=== PATIENT | female | born 1975 | race Caucasian/White ===

== ENCOUNTER 2023-08-03 20:07 | Emergency (ER) | payer OTHER, SELFPAY ==
[2023-08-03 20:09] VITALS: BP 158/97
[2023-08-03 20:31] LABS: % Basophils 0.3 % (0-2); % Eosinophils 0.5 % (0-6); % Immature Granulocytes 0.3 % (0-0.5); % Lymphocytes 20.7 % (20.5-51.1); % Monocytes 5.2 % (1.7-9.3); Absolute Eosinophils 0.1 10^3/uL (0-0.7); Absolute Lymphocytes 2.1 10^3/uL (1.2-3.4); Absolute Monocytes 0.5 10^3/uL (0.1-0.6); Absolute Neutrophils 7.2 10^3/uL (1.4-6.5); Hematocrit 39.2 % (37.0-47.0); Hemoglobin 13.7 g/dL (12.0-16.0); Mean Corp Hgb Conc. 34.9 g/dL (33.0-37.0); Mean Corpuscular Hgb 29.9 pg (27.0-31.0); Mean Corpuscular Volume 85.6 fL (81.0-99.0); Mean Platelet Volume 9.3 fL (7.4-10.4); Nucleated Red Blood Cells % 0 %; Platelet Count 238 10^3/uL (130-400); Red Blood Cell Count 4.58 10^6/uL (4.20-5.40); Red Cell Dist. Width 12.5 % (11.5-14.5); White Blood Cell Count 9.9 10^3/uL (4.8-10.8)
[2023-08-03 20:46] LABS: HCG, Serum Qualitative Screen Negative
[2023-08-03 20:49] LABS: ALT (SGPT) 26 U/L (0-35); AST (SGOT) 34 U/L (14-36); Albumin 4.9 g/dl (3.5-5.0); Alkaline Phosphatase 75 U/L (38-126); Blood Urea Nitrogen 16 mg/dl (7-17); Carbon Dioxide 23 mmol/L (22-30); Chloride 99 mmol/L (98-107); Glucose 102 mg/dl (70-99); Potassium 3.9 mmol/L (3.5-5.1); Sodium 135 mmol/L (135-145); Total Bilirubin 0.8 mg/dl (0.2-1.3); Total Protein 7.5 g/dl (6.3-8.2); eGFR > 60.00
[2023-08-03 21:16] VITALS: BMI 32.2
[2023-08-03 21:17] LABS: Lipase 78 U/L (23-300)
[2023-08-03] MEDS: ZOFRAN 4 MG IV (22:17)
[2023-08-03] MEDS: TORADOL 15 MG IV (22:17)
--- NOTE | 2023-08-03 22:19 | ED.GENMED ---
History of Present Illness
General
Chief Complaint: Abdominal Pain
Source: patient
Exam Limitations: none
Time Seen by Provider: 08/03/23 22:00
Travel History
Have you had any contact with someone who has COVID-19?: No
Do you have any symptoms of coronavirus? Fever > 100 degrees, chills, cough, shortness of breath, sore throat, loss of taste or smell, muscle aches, or headache?: No
History of Present Illness
History of Present Illness:
48-year-old female presents complaining the onset of epigastric abdominal pain that radiates to both sides. There is some nausea. It radiates to the back slightly. She notes a decreased appetite. This started around 1 PM today and got worse
since then. She had a similar episode about 1 month ago that was short lasting. She had 2 bowel movements today. She denies any dark or tarry stools.
Past History
Past History
ED Past Medical History: None
ED Past Surgical History: Other (Sinus surgery)
Social History
Tobacco: Non-smoker
Personal:
Living: with family
Phy Exam
Physical Exam
Physical Exam:
General: Well-appearing female no acute respiratory distress
HEENT: Normocephalic atraumatic
Heart: Regular rate and rhythm no murmurs
Lungs: Clear to auscultation bilaterally no wheezing
Abdomen: Soft tender to the epigastric and right upper quadrants. No guarding rebound normal bowel sounds negative Chavez sign
Extremities: No cyanosis
Skin: Warm no rash
Course
Orders/Labs/Results
Orders:
Orders
08/03/23 20:14
Test Result ONCE
08/03/23 20:26
Complete Blood Count/With Diff Urgent
Comprehensive Metabolic Panel Urgent
HCG, Serum Qualitative Screen Urgent
Lipase Urgent
08/03/23 22:10
Ketorolac [Toradol] 15 mg IV NOW STA
Ondansetron Injectable [Zofran] 4 mg IV NOW STA
US Abdomen Complete/Upper Urgent
Comment:
Reason For Exam: epigastric pain
08/03/23 23:25
Famotidine [Pepcid] 20 mg IV NOW STA
08/04/23 00:00
CT Abd/pelvis W Iv Cont Urgent
Reason For Exam: midabdominal pain
08/04/23 01:04
Mag Hydrox/Al Hydrox/Simeth [Maalox] 30 ml Phenobarb/Hyoscy/Atropine/Scop [] 10 ml PO NOW
Abnormal Lab Results
08/03/23
20:26
Absolute Neuts (auto) 7.2 H 10^3/uL
(1.4-6.5)
Glucose 102 H mg/dl
(70-99)
08/03/23 20:26
08/03/23 20:26
Vital Signs
Initial and Last Documented VS:
Initial Vital Signs
Temp Pulse Resp BP Pulse Ox
98.4 F 80 18 158/97 100
08/03/23 20:09 08/03/23 20:09 08/03/23 20:09 08/03/23 20:09 08/03/23 20:09
Last Documented Vital Signs
Temp Pulse Resp BP Pulse Ox
98.4 F 80 18 158/97 100
08/03/23 20:09 08/03/23 20:09 08/03/23 20:09 08/03/23 20:09 08/03/23 20:09
MDM/Problems Addressed
Differential Diagnosis Includes:
Upper abdominal pain. Consider gastritis or pancreatitis versus biliary colic versus constipation
Will check labs. Given tenderness on exam will order ultrasound.
*Critical Care Note
Total Time (30-74mins, 75-104mins- exclusive of procedures): Not Applicable
Update Note
Update Note:
Ultrasound shows sludge with gallstones but no signs of cholecystitis. Patient still in quite a bit of pain and tender on exam. Will continue with CT scan. Pepcid ordered. CT demonstrates thickening of the distal esophageal wall to suggest
esophagitis. This would be consistent with patient's symptoms. Recommended PPI. GI cocktail given here. Referred to GI. Stable for discharge
ED Attending Note
-
Portions of this chart may have been created with voice recognition software.� Occasional wrong word or��sound alike� substitutions may have occurred due to the inherent limitations of voice recognition software.
Discharge Plan
Departure
Patient Disposition: Home (Routine Discharge)
Date of Disposition: 08/04/23
Time of Disposition: 01:05
Patient with high blood pressure during this ER visit?: No
Discharge Problem:
Esophagitis
Instructions: Abdominal Pain
Prescriptions:
New
pantoprazole [Protonix] 40 mg tablet,delayed release (DR/EC)
40 mg PO DAILY Qty: 14 0RF
No Action
ciprofloxacin HCl 500 MG tablet
500 mg PO BID Qty: 10 0RF
Referrals:
Jonah Villa MD [Active] -
Anila Olmos CRNP [Family Provider] -
Activity Restrictions/Additional Instructions:
Eat a bland diet. Drink plenty of water. Use Protonix as directed. Return here for worsening symptoms otherwise follow-up with GI
Interventions
Interventions:
*Risk Screen - Suicide Last Done: 08/03/23 20:13
*General Assessment Last Done: 08/03/23 20:09
*Neglect/Abuse Screening Last Done: 08/03/23 20:09
BH-Lnfems-Xlodizplrg Assessment Last Done: 08/03/23 21:16
Discharge Date and Time
Print Language: JAMA[place]
[2023-08-03] MEDS: PEPCID 20 MG IV (23:34)
[2023-08-04] MEDS: MAALOX 40 PO (01:30)
== END 2023-08-04 01:54 | disposition home or self-care (01) ==
LOC: EMR 20:07
PROVIDERS: EMERGENCY PHYSICIAN Emergency Medicine; FAMILY PHYSICIAN Nurse Practitioner Adult Health
DX: K20.90 Esophagitis, unspecified without bleeding (principal)
CPT/HCPCS: 99285; 96374; 96375 ×2; 74177; 76700; 80053; 83690; 84703; 85025; Q9967

== ENCOUNTER → 2024-02-02 06:16 | Day surgery (SDC) | payer OTHER, SELFPAY | LOC: GI 06:16 | PROVIDERS: ATTENDING PHYSICIAN Internal Medicine | DX: Z12.11 Encounter for screening for malignant neoplasm of colon (principal); Z86.0101 Personal history of adenomatous and serrated colon polyps; K57.30 Diverticulosis of large intestine without perforation or abscess without bleeding; D12.0 Benign neoplasm of cecum; K63.5 Polyp of colon | CPT/HCPCS: 45385; 45380; 88305 ==

== ENCOUNTER 2024-07-19 15:04 | Emergency (ER) | payer SELFPAY ==
[2024-07-19 15:06] VITALS: BP 146/89
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
[2024-07-19] MEDS: MOTRIN 600 MG PO (16:20)
== END 2024-07-19 18:04 | disposition home or self-care (01) ==
LOC: EMR 15:04
PROVIDERS: EMERGENCY PHYSICIAN Emergency Medicine; FAMILY PHYSICIAN Nurse Practitioner Adult Health
DX: S62.002A Unspecified fracture of navicular [scaphoid] bone of left wrist, initial encounter for closed fracture (principal); R07.89 Other chest pain; V49.40XA Driver injured in collision with unspecified motor vehicles in traffic accident, initial encounter
CPT/HCPCS: 29125; 99284; 71046; 73110; 73140; 93005

== ENCOUNTER 2025-03-16 13:44 | Emergency (ER) | payer OTHER, SELFPAY ==
[2025-03-16 13:50] VITALS: BP 162/101
[2025-03-16 14:32] LABS: Hematocrit 42.2 % (37.0-47.0); Hemoglobin 14.6 g/dL (12.0-16.0); Mean Corp Hgb Conc. 34.6 g/dL (33.0-37.0); Mean Corpuscular Volume 85.4 fL (81.0-99.0); Nucleated Red Blood Cells % 0 %; Platelet Count 251 10^3/uL (130-400); Red Cell Dist. Width 12.9 % (11.5-14.5)
[2025-03-16 14:48] LABS: ALT (SGPT) 27 U/L (0-35); AST (SGOT) 24 U/L (14-36); Albumin 4.8 g/dl (3.5-5.0); Alkaline Phosphatase 66 U/L (38-126); Blood Urea Nitrogen 16 mg/dl (7-17); Calcium 9.3 mg/dl (8.4-10.2); Carbon Dioxide 29 mmol/L (22-30); Chloride 101 mmol/L (98-107); Glucose 95 mg/dl (70-99); Potassium 4.1 mmol/L (3.5-5.1); Sodium 137 mmol/L (135-145); Total Protein 7.8 g/dl (6.3-8.2); eGFR > 60.00
[2025-03-16 14:50] LABS: HCG, Serum Qualitative Screen Negative
--- NOTE | 2025-03-16 16:37 | ED.GENMED ---
History of Present Illness
<Juanito Barney MD, Resident - Last Filed: 03/16/25 19:28>
General
Chief Complaint: Cardiac Symptoms
Source: patient
Time Seen by Provider: 03/16/25 16:11
History of Present Illness
History of Present Illness:
Patient is a 50-year-old female, with past medical history significant for migraines, GERD, who is here for evaluation of palpitations in her chest.
Her symptoms started about 2 days ago, no precipitating event, she is currently on her period and she usually gets her migraines along with it, which usually resolves with ice packs on her neck and ibuprofen. This time, her headaches did not
resolve but it. Her main issue along with these usual headaches was the palpitations, and she feels like her heart is racing and it would jump out of her chest, and she feels the sensation radiating up her neck as well. Along with that she feels
like she is having difficulty breathing due to the chest palpitations.
Denies any chest pain, lightheadedness, dizziness, nausea, vomiting, syncope or near syncopal episodes.
Past History
<Juanito Barney MD, Resident - Last Filed: 03/16/25 19:28>
Past History
ED Past Medical History: None
ED Past Surgical History: Other (Sinus surgery)
Social History
Tobacco: Non-smoker
Personal:
Living: with family
Phy Exam
<Juanito Barney MD, Resident - Last Filed: 03/16/25 19:28>
General Physical Exam
General Presentation: well appearing and no apparent distress
General age: appears stated age
General Skin: warm and dry
General Habitus: normal
General Mental: alert
General Hydration: appears well hydrated
Cardiovascular Exam
Cardiovascular Exam: regular rate/rhythm, no edema, no gallop, no murmur and normal peripheral pulses
Pulmonary Exam
Pulmonary Exam: lungs clear, no respiratory distress, no rales and no crackles
Gastrointestinal Exam
Gastrointestinal Exam: normal bowel sounds, non tender and soft
Neurological Exam
Neurological Exam: alert, oriented x3, no motor deficits and no sensory deficits
Musculoskeletal Exam
Musculoskeletal Exam: full ROM
Course
<Juanito Barney MD, Resident - Last Filed: 03/16/25 19:28>
Orders/Labs/Results
Orders:
Orders
03/16/25 13:45
EKG [Electrocardiogram (*1)] Urgent
Reason for Study: Palpitations
EKG- Treatment ONCE
03/16/25 13:53
Test Result ONCE
03/16/25 14:22
Complete Blood Count/With Diff Urgent
Comprehensive Metabolic Panel Urgent
HCG, Serum Qualitative Screen Urgent
TSH Reflex To Free T4 Urgent
03/16/25 16:46
Chest [CR Chest - 2 Views ] Urgent
Comment:
Reason For Exam: palpitations,sob
03/16/25 16:48
Metoclopramide [Reglan] 10 mg PO NOW ONE
03/16/25 16:49
Diphenhydramine [Benadryl] 25 mg PO NOW ONE
03/16/25 17:59
Metoprolol [Lopressor] 25 mg PO NOW ONE
03/16/25 18:47
Lorazepam [Ativan] 1 mg PO NOW STA
Abnormal Lab Results
03/16/25
14:22
Lymphocytes % 19.2 L %
(20.5-51.1)
03/16/25 14:22
03/16/25 14:22
Vital Signs
Initial and Last Documented VS:
Initial Vital Signs
Temp Pulse Resp BP Pulse Ox
98.6 F 85 18 162/101 99
03/16/25 13:50 03/16/25 13:50 03/16/25 13:50 03/16/25 13:50 03/16/25 13:50
Last Documented Vital Signs
Temp Pulse Resp BP Pulse Ox
98.6 F 72 16 160/87 96
03/16/25 13:50 03/16/25 18:55 03/16/25 18:55 03/16/25 18:55 03/16/25 18:55
<Abram Bolivar, DO - Last Filed: 03/16/25 18:00>
Orders/Labs/Results
Orders:
Orders
03/16/25 13:45
EKG [Electrocardiogram (*1)] Urgent
Reason for Study: Palpitations
EKG- Treatment ONCE
03/16/25 13:53
Test Result ONCE
03/16/25 14:22
Complete Blood Count/With Diff Urgent
Comprehensive Metabolic Panel Urgent
HCG, Serum Qualitative Screen Urgent
TSH Reflex To Free T4 Urgent
03/16/25 16:46
Chest [CR Chest - 2 Views ] Urgent
Comment:
Reason For Exam: palpitations,sob
03/16/25 16:48
Metoclopramide [Reglan] 10 mg PO NOW ONE
03/16/25 16:49
Diphenhydramine [Benadryl] 25 mg PO NOW ONE
03/16/25 17:59
Metoprolol [Lopressor] 25 mg PO NOW ONE
03/16/25 18:47
Lorazepam [Ativan] 1 mg PO NOW STA
Abnormal Lab Results
03/16/25
14:22
Lymphocytes % 19.2 L %
(20.5-51.1)
03/16/25 14:22
03/16/25 14:22
Vital Signs
Initial and Last Documented VS:
Initial Vital Signs
Temp Pulse Resp BP Pulse Ox
98.6 F 85 18 162/101 99
03/16/25 13:50 03/16/25 13:50 03/16/25 13:50 03/16/25 13:50 03/16/25 13:50
Last Documented Vital Signs
Temp Pulse Resp BP Pulse Ox
98.6 F 72 16 160/87 96
03/16/25 13:50 03/16/25 18:55 03/16/25 18:55 03/16/25 18:55 03/16/25 18:55
<Juanito Barney MD, Resident - Last Filed: 03/16/25 19:28>
MDM/Problems Addressed
Differential Diagnosis Includes:
Acute coronary syndrome
Arrhythmias
Panic attack
Atypical migraines
Hyperthyroidism
Viral illness
MDM/Problems Addressed:
She has normal troponins EKG with PVCs, no evidence of acute coronary syndrome. Explained the PVCs and how they affect heartbeat. Single dose of metoprolol 25 mg given to the patient, did not feel much improved. There seems to be an element of
anxiety/depression although there is no official diagnosis, patient drove herself to the ER so provided prescription for home. Also provided referrals for cardiology for further workup.
Reglan and Benadryl for migraines.
No S/S of URI at this time, TSH within normal limits.
Reassured the patient and discharged with prescription of Xanax and referral to cardiology for further evaluation.
<Juanito Barney MD, Resident - Last Filed: 03/16/25 19:28>
*Pulse Oximetry
SaO2: 99
Oxygen Mode of Delivery: Room air
Patient hypoxic: no
*Critical Care Note
Total Time (30-74mins, 75-104mins- exclusive of procedures): Not Applicable
ED Attending Note
<Juanito Barney MD, Resident - Last Filed: 03/16/25 19:28>
-
Portions of this chart may have been created with voice recognition software.� Occasional wrong word or��sound alike� substitutions may have occurred due to the inherent limitations of voice recognition software.
<Abram Bolivar, DO - Last Filed: 03/16/25 18:00>
ED Attending Note
Patient seen and examined by attending physician: Yes
I performed a history and physical exam of patient and discussed management with resident, I reviewed resident's note and agree with documented findings and plan of care.: Yes
ED Attending Note:
seen wt resident, agree with a/p
looks like symtomatic pvcs
will add bblocker
cardiolog f/u
Discharge Plan
Departure
Patient Disposition: Home (Routine Discharge)
Date of Disposition: 03/16/25
Time of Disposition: 18:48
Patient with high blood pressure during this ER visit?: Yes
Condition: Good
Discharge Problem:
Heart palpitations
Instructions: Palpitations - ED (DC)
Prescriptions:
New
lorazepam [Ativan] 0.5 mg tablet
0.5 mg PO BID PRN (Reason: anxiety) Qty: 10 0RF
metoprolol tartrate 25 mg tablet
25 mg PO Q12H Qty: 30 0RF
No Action
ciprofloxacin HCl 500 MG tablet
500 mg PO BID Qty: 10 0RF
pantoprazole [Protonix] 40 mg tablet,delayed release (DR/EC)
40 mg PO DAILY Qty: 14 0RF
Referrals:
Franky Zuñiga MD [Active, Cardiology] - Next open appointment
Anila Olmos CRNP [Family Provider, General]
Interventions
Interventions:
*Risk Screen - Suicide Last Done: 03/16/25 13:50
*General Assessment Last Done: 03/16/25 13:50
*Neglect/Abuse Screening Last Done: 03/16/25 13:50
*ED COVID-19 Vaccine History Last Done: 03/16/25 13:50
*ED Influenza Vaccine History Last Done: 03/16/25 13:50
*Nursing Disposition Last Done: 03/16/25 19:11
ED- Pulmonary Assessment Last Done: 03/16/25 16:16
ED- Cardiac Assessment Last Done: 03/16/25 16:16
Discharge Date and Time
Print Language: GERMAN
[2025-03-16 16:46] VITALS: BP 170/98
[2025-03-16 17:00] VITALS: BP 157/93
[2025-03-16] MEDS: BENADRYL 25 MG PO (17:24)
[2025-03-16] MEDS: REGLAN 10 MG PO (17:24)
[2025-03-16 17:31] VITALS: BP 150/95
[2025-03-16 18:00] VITALS: BP 152/95
[2025-03-16] MEDS: LOPRESSOR 25 MG PO (18:15)
[2025-03-16 18:55] VITALS: BP 160/87
[2025-03-16] MEDS: ATIVAN 1 MG PO (19:06)
== END 2025-03-16 19:31 | disposition home or self-care (01) ==
LOC: EMR 13:44
PROVIDERS: Emergency Medicine; EMERGENCY PHYSICIAN Emergency Medicine; FAMILY PHYSICIAN Nurse Practitioner Adult Health
DX: R00.2 Palpitations (principal); R11.0 Nausea; R06.00 Dyspnea, unspecified; R03.0 Elevated blood-pressure reading, without diagnosis of hypertension; G43.909 Migraine, unspecified, not intractable, without status migrainosus; K21.9 Gastro-esophageal reflux disease without esophagitis; Z88.1 Allergy status to other antibiotic agents; Z88.0 Allergy status to penicillin; Z88.8 Allergy status to other drugs, medicaments and biological substances
CPT/HCPCS: 99283; 71046; 80053; 84443; 84703; 85025; 93005

== ENCOUNTER → 2025-04-03 15:45 | Outpatient (REF) | payer OTHER, SELFPAY | LOC: RCS 15:45 | PROVIDERS: ATTENDING PHYSICIAN Nuclear Medicine Nuclear Cardiology; FAMILY PHYSICIAN Nurse Practitioner Adult Health | DX: R00.2 Palpitations (principal) | CPT/HCPCS: 93306 ==

== ENCOUNTER → 2025-04-04 07:36 | Outpatient (REF) | payer OTHER, SELFPAY | LOC: RCS 07:36 | PROVIDERS: ATTENDING PHYSICIAN Nuclear Medicine Nuclear Cardiology; FAMILY PHYSICIAN Nurse Practitioner Adult Health | DX: R00.2 Palpitations (principal) | CPT/HCPCS: 93017 ==